=== PATIENT | female | born 2000 | race Caucasian/White ===

== ENCOUNTER 2025-01-27 19:11 | Emergency (ER) | payer OTHER ==
[~2025-01-27] VITALS: Ht 165.1 cm; Wt 69.6 kg
[2025-01-27 20:55] LABS: BILIRUBIN Negative (Negative); BLOOD Negative (Negative); CLARITY Clear (Clear); COLOR Yellow (Yellow); GLUCOSE Negative (Negative); KETONE 3+ (Negative); LEUKO ESTERASE Negative (Negative); NITRITE Negative (Negative); PH 5.5 (4.5-8.0); SPECIFIC GRAVITY >= 1.030 (1.001-1.030); UROBILINOGEN 0.2 E.U./dl (0.0-1.0)
[2025-01-27 21:21] LABS: BACTERIA 2+; EPITHELIAL CELLS 51-100
== END 2025-01-27 21:45 | disposition home or self-care (01) ==
LOC: ED 19:11
PROVIDERS: Emergency Medicine
DX: O9A.211 Injury, poisoning and certain other consequences of external causes complicating pregnancy, first trimester (principal); S30.1XXA Contusion of abdominal wall, initial encounter; R82.4 Acetonuria; Z3A.10 10 weeks gestation of pregnancy; Y04.2XXA Assault by strike against or bumped into by another person, initial encounter; Y93.F2 Activity, caregiving, lifting; Y92.238 Other place in hospital as the place of occurrence of the external cause; Y99.0 Civilian activity done for income or pay